=== PATIENT | female | born 1990 | race Two or more races ===

== ENCOUNTER → 2016-10-06 | Emergency (ER) | payer SELFPAY ==
[~2016-10-06] VITALS: Ht 165.1 cm; Wt 77.1 kg
[2016-10-06 12:30] VITALS: BP 108/67
--- NOTE | 2016-10-10 20:30 | Emergency Room Report ---
History of Present Illness General Chief Complaint: Abdominal Pain Source: Patient Present Illness Allergies: Coded Allergies: No Known Allergies (Unverified , 10/06/16) Patient History Now: No Nursing Documentation-[facility] Past Medical History: No Stated History Physical Exam Vital Signs Date Time Temp Pulse Resp B/P (MAP) Pulse Ox O2 Delivery O2 Flow Rate FiO2 10/06/16 12:30 97.9 86 16 108/67 98 Room Air Medical Decision Making Diagnostic Impression: Primary Impression: abdominal pain Last Vital Signs Date Time Temp Pulse Resp B/P (MAP) Pulse Ox O2 Delivery O2 Flow Rate FiO2 10/06/16 12:30 97.9 86 16 108/67 98 Room Air Disposition: LEFT W/OUT BEING SEEN Condition: Unknown Referrals: NOT CHOSEN IPA/,REFERRING (PCP) Wei Cai Oct 10, 2016 20:30
== END | disposition left against medical advice (07) ==
LOC: EDBD 12:38 → EMR 13:01
DX: R10.9 Unspecified abdominal pain (principal); Z53.21 Procedure and treatment not carried out due to patient leaving prior to being seen by health care provider
CPT/HCPCS: 99283

== ENCOUNTER → 2016-10-12 04:25 | Emergency (ER) | payer SELFPAY ==
[~2016-10-12] VITALS: Ht 167.6 cm; Wt 72.6 kg
[2016-10-12 04:25] VITALS: BP 107/72
--- NOTE | 2016-10-12 04:30 | Emergency Room Report ---
History of Present Illness General Chief Complaint: Abdominal Pain Source: Patient Present Illness HPI Is a 27-year-old female who called 911 for abdominal pain. She claimed that she is one month . About an hour ago she called 911 for abdominal pain. When she got here she got up and left. She walked 2 blocks and called 911 again. They brought her here. Her EMS she done this multiple times at a different hospital. She was recently at [facility] for the same thing. Patient just got here and then she got up and said she felt better and she wants to leave. She does want to be seen. Allergies: Coded Allergies: No Known Allergies (Unverified , 10/06/16) Patient History Past Medical History: see triage record, old chart reviewed Past Surgical History: other Pertinent Family History: none Social History: Denies: smoking Last Menstrual Period: now 1 month Now: Yes Immunizations: other Reviewed Nursing Documentation: PMH: Agreed, PSxH: Agreed Nursing Documentation-[facility] Past Medical History: No Stated History Review of Systems Eye: Denies: eye pain, blurred vision ENT: Denies: ear pain, nose congestion, throat swelling Respiratory: Denies: cough, shortness of breath Cardiovascular: Denies: chest pain, palpitations Gastrointestinal: Reports: abdominal pain, Denies: diarrhea, nausea, vomiting Musculoskeletal: Denies: back pain, joint pain Skin: Denies: rash Neurological: Denies: headache, numbness Endocrine: Denies: increased thirst, increased urine Hematologic/Lymphatic: Denies: easy bruising All Other Systems: negative except mentioned in HPI Physical Exam Vital Signs Date Time Temp Pulse Resp B/P (MAP) Pulse Ox O2 Delivery O2 Flow Rate FiO2 10/12/16 04:12 82 18 107/72 100 Room Air vitals normal Sp02 EP Interpretation: normal General Appearance: normal inspection, well appearing, no apparent distress Head: normocephalic, atraumatic Eyes: bilateral eye PERRL, bilateral eye EOMI ENT: hearing grossly normal, normal pharynx Neck: full range of motion, supple, no meningismus Respiratory: no respiratory distress Musculoskeletal: gait/station normal, normal range of motion Psychiatric: mood/affect normal Skin: warm/dry Medical Decision Making Diagnostic Impression: Primary Impression: Abdominal pain Qualified Codes: R10.84 - Generalized abdominal pain ER Course Patient presents with abdominal pain. She claims she is . I barely examine her before she got up and left. I suspect she is abusing the system. She is otherwise stable. She left AGAINST MEDICAL ADVICE. Last Vital Signs Date Time Temp Pulse Resp B/P (MAP) Pulse Ox O2 Delivery O2 Flow Rate FiO2 10/12/16 04:12 82 18 107/72 100 Room Air Status: improved Disposition: AGAINST MEDICAL ADVICE Condition: Stable DEREK VEGA M.D. Oct 12, 2016 04:29
== END | disposition left against medical advice (07) ==
LOC: EDUNIT# 04:11 → EMR 04:25 → EDBD 04:25
DX: R10.9 Unspecified abdominal pain (principal); O26.91 Pregnancy related conditions, unspecified, first trimester; Z3A.00 Weeks of gestation of pregnancy not specified
CPT/HCPCS: 99282

== ENCOUNTER 2016-11-15 18:34 | Emergency (ER) | payer SELFPAY ==
[~2016-11-15] VITALS: Ht 162.6 cm; Wt 70.3 kg
[2016-11-15 18:28] VITALS: BP 116/64
[2016-11-18] MEDS ORDERED: NKM (02:07)
== END 2016-11-15 18:50 | disposition left against medical advice (07) ==
LOC: EDBD → EMR 18:50
DX: R10.9 Unspecified abdominal pain (principal); Z53.21 Procedure and treatment not carried out due to patient leaving prior to being seen by health care provider
CPT/HCPCS: 99281

== ENCOUNTER 2016-11-16 04:25 | Emergency (ER) | payer SELFPAY ==
[~2016-11-16] VITALS: Ht 160 cm; Wt 77.1 kg
[2016-11-16 04:20] VITALS: BP 105/74
--- NOTE | 2016-11-16 05:18 | Emergency Room Report ---
History of Present Illness General Chief Complaint: Abdominal Pain Source: EMS Present Illness Allergies: Coded Allergies: No Known Allergies (Unverified , 10/06/16) Patient History Last Menstrual Period: unk Now: Yes - 1 month Nursing Documentation-[facility] Past Medical History: No Stated History Physical Exam Vital Signs Date Time Temp Pulse Resp B/P (MAP) Pulse Ox O2 Delivery O2 Flow Rate FiO2 11/16/16 04:16 98.4 75 16 105/74 98 Room Air Medical Decision Making Diagnostic Impression: Primary Impression: Patient left without being seen ER Course patient left prior to manager stone or MD evaluation Last Vital Signs Date Time Temp Pulse Resp B/P (MAP) Pulse Ox O2 Delivery O2 Flow Rate FiO2 11/16/16 04:20 98.4 75 16 105/74 98 Room Air Status: unchanged Disposition: LEFT W/OUT BEING SEEN Condition: Stable Referrals: NOT CHOSEN IPA/,REFERRING (PCP) BIA ISLAS M.D. Nov 16, 2016 05:18
[2016-11-18] MEDS ORDERED: NKM (02:07)
== END 2016-11-16 04:45 | disposition left against medical advice (07) ==
LOC: EDBD → EMR 04:25 → EDBD 04:25 → EMR 04:45
DX: R10.9 Unspecified abdominal pain (principal); Z53.21 Procedure and treatment not carried out due to patient leaving prior to being seen by health care provider
CPT/HCPCS: 99281

== ENCOUNTER 2016-11-18 02:07 | Emergency (ER) | payer SELFPAY ==
[~2016-11-18] VITALS: Ht 154.9 cm; Wt 72.6 kg
[~2016-11-18 02:07] MED LIST: NKM
[2016-11-18 02:08] VITALS: BP 124/81
[2016-11-18 02:14] VITALS: BP 124/81
--- NOTE | 2016-11-18 02:14 | Emergency Room Report ---
History of Present Illness General Chief Complaint: Abdominal Pain Source: Patient Present Illness HPI Is a 26-year-old female who come here frequently. She also go to the ER. She [address] saying that she has abdominal pain. Sometimes she would say that she is . She told me that she's been having pain for the last couple days but no nausea no vomiting. No diarrhea. Once here she said she fell better wants go to the waiting room. In the meantime she went to the bathroom and urinate all over the floor. This is the same M.O. as before. No malaise she would come in urinate on the floor and said she felt better and wants to leave. Allergies: Coded Allergies: No Known Allergies (Unverified , 10/06/16) Patient History Past Medical History: see triage record, old chart reviewed, psych hx Past Surgical History: other Pertinent Family History: none Social History: Denies: smoking Last Menstrual Period: oct. Now: No Immunizations: other Reviewed Nursing Documentation: PMH: Agreed, PSxH: Agreed Nursing Documentation-[facility] Past Medical History: No Stated History Review of Systems Eye: Denies: eye pain, blurred vision ENT: Denies: ear pain, nose congestion, throat swelling Respiratory: Denies: cough, shortness of breath Cardiovascular: Denies: chest pain, palpitations Gastrointestinal: Reports: abdominal pain, Denies: diarrhea, nausea, vomiting Musculoskeletal: Denies: back pain, joint pain Skin: Denies: rash Neurological: Denies: headache, numbness Endocrine: Denies: increased thirst, increased urine Hematologic/Lymphatic: Denies: easy bruising All Other Systems: negative except mentioned in HPI Physical Exam Vital Signs Date Time Temp Pulse Resp B/P (MAP) Pulse Ox O2 Delivery O2 Flow Rate FiO2 11/18/16 02:05 90 16 124/81 100 Room Air vitals normal Sp02 EP Interpretation: reviewed, normal General Appearance: well appearing, no apparent distress, alert Head: normocephalic, atraumatic Eyes: bilateral eye PERRL, bilateral eye EOMI ENT: hearing grossly normal, normal pharynx Neck: full range of motion, supple, no meningismus Respiratory: chest non-tender, lungs clear, normal breath sounds Cardiovascular #1: regular rate, rhythm, no murmur Gastrointestinal: normal bowel sounds, non tender, no mass, no organomegaly, no bruit, non-distended Musculoskeletal: back normal, gait/station normal, normal range of motion Psychiatric: mood/affect normal Skin: warm/dry Medical Decision Making Diagnostic Impression: Primary Impression: Abdominal pain Qualified Codes: R10.84 - Generalized abdominal pain ER Course She with abdominal pain. Abdomen exam is soft benign. I suspect is a strong psychiatric component. After she urinated on the floor, I asked her to clean up and she cleared up without any difficulty. She then wants to leave. She left without paperwork. Last Vital Signs Date Time Temp Pulse Resp B/P (MAP) Pulse Ox O2 Delivery O2 Flow Rate FiO2 11/18/16 02:08 90 16 124/81 100 Room Air Status: unchanged Disposition: HOME, SELF-CARE Condition: Stable Patient Instructions: Abdominal Pain, Adult DEREK VEGA M.D. Nov 18, 2016 02:14
== END 2016-11-18 02:20 | disposition left against medical advice (07) ==
LOC: EDBD → EMR 02:16
DX: R10.84 Generalized abdominal pain (principal)
CPT/HCPCS: 99282

== ENCOUNTER 2016-11-25 17:21 | Emergency (ER) | payer SELFPAY | END 2016-11-25 18:00 | disposition left against medical advice (07) | LOC: EDBD → EMR 17:50 | DX: R10.9 Unspecified abdominal pain (principal) | CPT/HCPCS: 99281 ==

== ENCOUNTER 2016-11-29 03:31 | Emergency (ER) | payer SELFPAY ==
--- NOTE | 2016-11-29 03:45 | Emergency Room Report ---
History of Present Illness General Source: Patient Present Illness HPI Is a 26-year-old female well-known to us and EMS system. She called 911 complaining abdominal pain. And when she gets to the hospital, she said that her pain resolved want to leave. Usually she would urinate on the floor. Today she called 911 complaint abdominal pain and was picked up on the street. She got here she no longer has pain and wants to leave. She refuses any triage. Allergies: Coded Allergies: No Known Allergies (Unverified , 10/06/16) Patient History Past Medical History: see triage record, old chart reviewed Past Surgical History: other Pertinent Family History: none Social History: Denies: smoking Now: No Immunizations: other Reviewed Nursing Documentation: PMH: Agreed, PSxH: Agreed Review of Systems Eye: Denies: eye pain, blurred vision ENT: Denies: ear pain, nose congestion, throat swelling Respiratory: Denies: cough, shortness of breath Cardiovascular: Denies: chest pain, palpitations Gastrointestinal: Reports: abdominal pain, Denies: diarrhea, nausea, vomiting Musculoskeletal: Denies: back pain, joint pain Skin: Denies: rash Neurological: Denies: headache, numbness Endocrine: Denies: increased thirst, increased urine Hematologic/Lymphatic: Denies: easy bruising All Other Systems: negative except mentioned in HPI Physical Exam General Appearance: well appearing, no apparent distress ENT: hearing grossly normal Neck: full range of motion Respiratory: normal inspection Musculoskeletal: gait/station normal Neurologic: alert, oriented x3 Medical Decision Making Diagnostic Impression: Primary Impression: Abdominal pain Qualified Codes: R10.84 - Generalized abdominal pain ER Course Patient presents with abdominal pain. I did not do a full physical exam the patient because she left. I suspect that this is all psychogenic. She left without being triage. Status: improved Disposition: LEFT W/OUT BEING SEEN Condition: Stable DEREK VEGA M.D. Nov 29, 2016 03:45
== END 2016-11-29 03:39 | disposition left against medical advice (07) ==
LOC: EDBD → EMR 03:39
DX: R10.9 Unspecified abdominal pain (principal)
CPT/HCPCS: 99281

== ENCOUNTER 2016-11-29 14:39 | Emergency (ER) | payer SELFPAY ==
--- NOTE | 2016-11-29 17:58 | Emergency Room Report ---
History of Present Illness Present Illness Allergies: Coded Allergies: No Known Allergies (Unverified , 10/06/16) Medical Decision Making Disposition: LEFT W/OUT BEING SEEN Referrals: NOT CHOSEN IPA/,REFERRING (PCP) GWEN GALVEZ M.D. Nov 29, 2016 17:58
== END 2016-11-29 16:31 | disposition left against medical advice (07) ==
LOC: EDBD 14:39 → EMR 16:24
DX: R10.9 Unspecified abdominal pain (principal); Z53.21 Procedure and treatment not carried out due to patient leaving prior to being seen by health care provider
CPT/HCPCS: 99281

== ENCOUNTER 2016-12-23 20:55 | Emergency (ER) | payer SELFPAY ==
[~2016-12-23] VITALS: Ht 154.9 cm; Wt 54.4 kg
[2016-12-23 21:05] VITALS: BP 130/88
--- NOTE | 2016-12-23 22:57 | Emergency Room Report ---
History of Present Illness General Chief Complaint: Abdominal Pain Source: Patient Present Illness Allergies: Coded Allergies: No Known Allergies (Unverified , 10/06/16) Patient History Last Menstrual Period: unknown Now: Yes - 2months Nursing Documentation-[facility] Past Medical History: No Stated History Physical Exam Vital Signs Date Time Temp Pulse Resp B/P (MAP) Pulse Ox O2 Delivery O2 Flow Rate FiO2 12/23/16 20:50 97.9 92 18 130/88 98 Room Air Medical Decision Making ER Course I didnt see patient Eloped as soon as arrived to ED Last Vital Signs Date Time Temp Pulse Resp B/P (MAP) Pulse Ox O2 Delivery O2 Flow Rate FiO2 12/23/16 21:05 97.9 18 130/88 98 Room Air 12/23/16 20:50 92 Status: improved Disposition: ELOPED Referrals: NOT CHOSEN BRETT/,REFERRING (PCP) GWEN GALVEZ M.D. Dec 23, 2016 22:57
== END 2016-12-23 21:05 | disposition left against medical advice (07) ==
LOC: EDBD 20:55 → EMR 20:59
DX: R10.9 Unspecified abdominal pain (principal); Z53.21 Procedure and treatment not carried out due to patient leaving prior to being seen by health care provider
CPT/HCPCS: 99281

== ENCOUNTER 2017-01-11 03:07 | Emergency (ER) | payer SELFPAY ==
[2017-01-11 03:10] VITALS: BP 0/0
--- NOTE | 2017-01-11 03:14 | Emergency Room Report ---
History of Present Illness General Source: Patient, Medical Record, EMS Present Illness HPI A 26-year-old female well-known to this ER and EMS. She gave several different names in the past. She presents with chief complaint of abdominal pain. She [address] Her usual things is to call 911 for abdominal pain. When she did to the ER she usually urinate on the floor and walked out. Today she called 911 and as she was being triaged I recognize who she was. I asked her not to urinate on the floor. She took off the blood pressure cuff and walked out of the ER in no distress. I did not get to examine the patient. Allergies: Coded Allergies: No Known Allergies (Unverified , 10/06/16) Patient History Past Medical History: see triage record, old chart reviewed Past Surgical History: other Pertinent Family History: none Social History: Denies: smoking Now: No Immunizations: other Reviewed Nursing Documentation: PMH: Agreed, PSxH: Agreed Medical Decision Making Diagnostic Impression: Primary Impression: Abdominal pain Qualified Codes: R10.84 - Generalized abdominal pain Disposition: LEFT W/OUT BEING SEEN DEREK VEGA M.D. Jan 11, 2017 03:14
== END 2017-01-11 03:13 | disposition left against medical advice (07) ==
LOC: EDUNIT# 03:07 → EDBD 03:07 → EMR 03:11
DX: R10.9 Unspecified abdominal pain (principal); Z53.21 Procedure and treatment not carried out due to patient leaving prior to being seen by health care provider
CPT/HCPCS: 99281